=== PATIENT | female | born 1980 | race Caucasian/White ===

== ENCOUNTER 2025-05-25 15:42 | Emergency (ER) | payer BC ==
[~2025-05-25] VITALS: Ht 175.3 cm; Wt 68.0 kg
[2025-05-25 15:42] VITALS: BP 114/70
[2025-05-25] MEDS ORDERED: IBUP-1955 PO (16:57)
[2025-05-25] MEDS ORDERED: LIDO30AD10 TP (16:57)
[2025-05-25] MEDS ORDERED: CYCL5TAB PO (16:57)
[2025-05-25] MEDS ORDERED: KETOROLAC TROMETHAMINE 15 MG INJ ONE (17:06)
[2025-05-25] MEDS ORDERED: LIDOCAINE 5% PATCH TD ONE (17:07)
[2025-05-25] MEDS ORDERED: CYCLOBENZAPRINE HCL 10 MG TABLET ONE (17:07)
[2025-05-25] MEDS: LIDOCAINE 5% PATCH TD ONE (17:14)
[2025-05-25] MEDS: KETOROLAC TROMETHAMINE 15 MG INJ IM ONE (17:14)
[2025-05-25] MEDS: CYCLOBENZAPRINE HCL 10 MG TABLET PO ONE (17:17)
[2025-05-25 18:16] VITALS: BP 114/70; TEMP 97.8; O2SAT 95
== END 2025-05-25 17:40 | disposition home or self-care (01) ==
LOC: ER 15:42
DX: M54.6 Pain in thoracic spine (principal); R07.81 Pleurodynia; E06.3 Autoimmune thyroiditis; J45.909 Unspecified asthma, uncomplicated; Z87.39 Personal history of other diseases of the musculoskeletal system and connective tissue; Z88.8 Allergy status to other drugs, medicaments and biological substances
CPT/HCPCS: 99283; 71101; 93005; J1885; A4606; A4663